=== PATIENT | male | born 1990 | race African-American/Black ===

== ENCOUNTER 2018-03-27 05:56 | Emergency (ER) | payer SELFPAY ==
--- NOTE | 2018-03-27 05:58 | NUR ---
ED Nurse Note: pt was brought in by ra [facility] from [facility] due to sore throat and cold but pt didnt enter ed. pt refused to be seen.
== END 2018-03-27 05:58 | disposition left against medical advice (07) ==
LOC: EDBD 05:56 → EMR 05:58
DX: Z53.21 Procedure and treatment not carried out due to patient leaving prior to being seen by health care provider (principal)
CPT/HCPCS: 99283